=== PATIENT | female | born 1980 | race African-American/Black ===

== ENCOUNTER 2017-01-03 12:44 | Inpatient (IN) | payer MEDICAID ==
[~2017-01-03] VITALS: Ht 162.6 cm; Wt 75.2 kg
[~2017-01-03 12:44] MED LIST: PREN-129 OR
[2017-01-03 13:33] LABS: Urine Bilirubin Negative (Negative); Urine Blood 1+ /uL (Negative); Urine Color Yellow (Yellow); Urine Glucose Normal (Normal); Urine Ketone Negative (Negative); Urine Mucus FEW (None Seen); Urine Nitrite Negative (Negative); Urine RBC 8 /hpf (0 - 4); Urine Squamous Epithelial Cell FEW /hpf (<5); Urine WBC Clumps PRESENT /hpf (None Seen); Urine pH 5.5 (5.0-8.0)
[2017-01-03 13:40] LABS: Basophils # (auto) 0 uL; CONDITION Y; Calcium 8.7 mg/dL (8.5-10.1); DEFINITIVE SEE PRINTOUT; Eosinophils # (auto) 0 uL; Eosinophils % (auto) 0.1 % (0.0-7.0); Hematocrit 29.6 % (36.0-46.0); Hemoglobin 9.6 g/dL (12.2-16.2); Lymphocytes # (auto) 0.8 uL; Lymphocytes % (auto) 6.6 % (10.0-50.0); Mean Corpuscular Hgb Conc. 32.4 g/dL (32.0-36.0); Mean Corpuscular Volume 74.3 fL (80.0-100.0); Mean Platelet Volume 8.5 fL (7.4-10.4); Monocytes # (auto) 1.1 uL; Monocytes % (auto) 9.7 % (0.0-12.0); Neutrophils # (auto) 9.8 uL; Neutrophils % (auto) 83.6 % (37.0-80.0); Platelet Count (auto) 440 10^3/uL (140-450); Potassium 3.4 mmol/L (3.5-5.1); White Blood Cell 11.7 10^3/uL (4.4-10.8)
[2017-01-03 13:42] LABS: BUN/Creatinine Ratio 10.7
[2017-01-03 13:44] LABS: Red Cell Distribution Width 21.1 % (11.6-16.0)
[2017-01-03 13:45] LABS: Bilirubin, Total 0.4 mg/dL (0.2-1.0)
[2017-01-03 14:15] LABS: Anisocytosis Slight; Giant Platelets Few; Hypochromia Slight; Ovalocytes FEW; Platelet Estimate Adequate
[2017-01-03 14:16] LABS: Large Platelets FEW
[2017-01-03] MEDS ORDERED: SODIUM CHLORIDE 0.9% 1,000 ML IVB ONE (14:17)
[2017-01-03] MEDS ORDERED: ONDANSETRON HCL 4 MG/2 ML VIAL IV ONE (14:30)
[2017-01-03 14:45] LABS: Magnesium 2.4 mg/dL (1.6-2.6)
[2017-01-03 14:54] LABS: Partial Thromboplastin Time 31.4 sec (22.64-33.71); Prothrombin Time 10.9 sec (9.37-12.3)
[2017-01-03] MEDS ORDERED: cefTRIAXone 1GM/50ML D5W 50 ML IV ONE (16:30)
[2017-01-03] MEDS ORDERED: KETOROLAC TROMETH 30 MG/ML 1ML VIAL IV ONE (16:45)
[2017-01-03] MEDS ORDERED: TEMAZEPAM 15 MG CAP PO PRN (19:15)
[2017-01-03] MEDS ORDERED: DOCUSATE SOD 100 MG CAP PO PRN (19:15)
[2017-01-03] MEDS ORDERED: HYDROcodone-ACET 5/325MG TAB PO PRN (19:15)
[2017-01-03] MEDS ORDERED: VANCOMYCIN PER PHARMACY 0 MG IV SCH (19:15)
[2017-01-03] MEDS ORDERED: MORPHINE SULF INJ 2 MG/ML SYRINGE 1ML IV PRN (19:15)
[2017-01-03] MEDS ORDERED: ACETAMINOPHEN 325 MG TAB PO PRN (19:15)
[2017-01-03] MEDS ORDERED: POTASSIUM CHLORIDE 8 MEQ TAB PO ONE (19:15)
[2017-01-03] MEDS: ONDANSETRON HCL 4 MG/2 ML VIAL IV PRN (20:17)
[2017-01-03] MEDS: SODIUM CHLORIDE 0.9% 1,000 ML IV SCH (20:18)
[2017-01-03] MEDS: VANCOMYCIN 1GM/250ML D5W 250 ML IV SCH (20:19)
[2017-01-03 21:10] VITALS: BP 109/73
[2017-01-03] MEDS: FAMOTIDINE 20 MG TAB PO SCH (21:55)
[2017-01-03 22:00] VITALS: BP 109/73
[2017-01-04 05:00] VITALS: BP 115/71
[2017-01-04] MEDS: SODIUM CHLORIDE 0.9% 1,000 ML IV SCH ×2 (05:08→08:53)
[2017-01-04 06:15] LABS: Basophils # (auto) 0 uL; Basophils % (auto) 0.2 % (0.0-2.0); CONDITION Y; DEFINITIVE SEE PRINTOUT; Eosinophils # (auto) 0.1 uL; Eosinophils % (auto) 0.8 % (0.0-7.0); Hematocrit 24.2 % (36.0-46.0); Hemoglobin 7.8 g/dL (12.2-16.2); Lymphocytes # (auto) 1.5 uL; Lymphocytes % (auto) 14.8 % (10.0-50.0); Mean Corpuscular Hemoglobin 23.9 pg (28.0-32.0); Mean Corpuscular Hgb Conc. 32.3 g/dL (32.0-36.0); Mean Platelet Volume 8.5 fL (7.4-10.4); Monocytes # (auto) 1.5 uL; Monocytes % (auto) 15.6 % (0.0-12.0); Neutrophils # (auto) 6.7 uL; Neutrophils % (auto) 68.6 % (37.0-80.0); Platelet Count (auto) 357 10^3/uL (140-450); White Blood Cell 9.8 10^3/uL (4.4-10.8)
[2017-01-04 07:03] LABS: Albumin 2.4 g/dL (3.4-5.0); BUN/Creatinine Ratio 15.3; Bilirubin, Total 0.3 mg/dL (0.2-1.0); Calcium 8.1 mg/dL (8.5-10.1); Potassium 3.4 mmol/L (3.5-5.1); Total Protein 6.3 g/dL (6.4-8.2)
[2017-01-04] MEDS: BOOST PLUS 8 ounce PO SCH ×3 (08:12→18:07)
[2017-01-04 08:49] LABS: Anisocytosis Slight; Hypochromia Slight; Platelet Estimate Adequate
[2017-01-04] MEDS: VANCOMYCIN 1GM/250ML D5W 250 ML IV SCH (08:51)
[2017-01-04] MEDS: cefTRIAXone 1GM/50ML D5W 50 ML IV SCH (08:52)
[2017-01-04] MEDS: MULTIPLE VITAMIN TAB PO SCH (08:52)
[2017-01-04] MEDS: FAMOTIDINE 20 MG TAB PO SCH ×2 (08:52→21:22)
[2017-01-04 09:39] VITALS: BP 118/68
[2017-01-04] MEDS ORDERED: POTASSIUM CHL 10 Meq TABLET PO ONE ×2 (11:00→13:15)
[2017-01-04 14:16] VITALS: BP 120/70
[2017-01-04 17:20] VITALS: BP 111/69
[2017-01-04 21:30] VITALS: BP 135/82
[2017-01-05 05:00] VITALS: BP 133/78
[2017-01-05] MEDS: SODIUM CHLORIDE 0.9% 1,000 ML IV SCH ×3 (06:27→12:27)
[2017-01-05] MEDS: ONDANSETRON HCL 4 MG/2 ML VIAL IV PRN (06:38)
[2017-01-05 06:50] LABS: Basophils # (auto) 0.1 uL; Basophils % (auto) 0.6 % (0.0-2.0); CONDITION Y; DEFINITIVE SEE PRINTOUT; Eosinophils # (auto) 0.1 uL; Eosinophils % (auto) 1.3 % (0.0-7.0); Hematocrit 24.5 % (36.0-46.0); Hemoglobin 7.9 g/dL (12.2-16.2); Lymphocytes # (auto) 1.9 uL; Lymphocytes % (auto) 23.3 % (10.0-50.0); Mean Corpuscular Hemoglobin 24.1 pg (28.0-32.0); Mean Corpuscular Hgb Conc. 32.4 g/dL (32.0-36.0); Mean Corpuscular Volume 74.3 fL (80.0-100.0); Mean Platelet Volume 8.8 fL (7.4-10.4); Monocytes # (auto) 0.9 uL; Monocytes % (auto) 10.5 % (0.0-12.0); Neutrophils # (auto) 5.4 uL; Neutrophils % (auto) 64.3 % (37.0-80.0); Platelet Count (auto) 381 10^3/uL (140-450); White Blood Cell 8.4 10^3/uL (4.4-10.8)
[2017-01-05 07:09] LABS: Red Cell Distribution Width 20.9 % (11.6-16.0)
[2017-01-05 07:10] LABS: Potassium 3.6 mmol/L (3.5-5.1)
[2017-01-05 07:20] LABS: Albumin 2.3 g/dL (3.4-5.0); BUN/Creatinine Ratio 12.5; Bilirubin, Total 0.1 mg/dL (0.2-1.0)
[2017-01-05 07:55] LABS: Anisocytosis Slight; Hypochromia Slight; Platelet Estimate Adequate
[2017-01-05 07:56] LABS: Platelet Clumps FEW
[2017-01-05] MEDS: BOOST PLUS 8 ounce PO SCH ×2 (07:57→12:27)
[2017-01-05 08:00] VITALS: BP 126/84
[2017-01-05 09:00] VITALS: BP 126/84
[2017-01-05] MEDS: MULTIPLE VITAMIN TAB PO SCH (09:40)
[2017-01-05] MEDS: FAMOTIDINE 20 MG TAB PO SCH (09:40)
[2017-01-05] MEDS: cefTRIAXone 1GM/50ML D5W 50 ML IV SCH (09:40)
[2017-01-05 12:30] VITALS: BP 125/80
[2017-01-05 13:00] VITALS: BP 119/75
== END 2017-01-05 14:09 | disposition home or self-care (01) | DRG 720 ==
LOC: ER 12:44 → OVERFLOW 12:45 → WEST WING 21:16
PROVIDERS: ADMIT Internal Medicine; ATTEND Internal Medicine
DX: A41.9 Sepsis, unspecified organism (principal); E44.0 Moderate protein-calorie malnutrition; N12 Tubulo-interstitial nephritis, not specified as acute or chronic; E87.6 Hypokalemia; D50.9 Iron deficiency anemia, unspecified; Z82.49 Family history of ischemic heart disease and other diseases of the circulatory system
CPT/HCPCS: 36415; 71010; 74176; 76856; 80053; 80202; 81001; 81025; 82150; 83540; 83605; 83690; 83735; 84443; 85025; 85610; 85730; 87040; 87086; 87088; 87186; 94761; 96361; 96365; 96375; J0696; J1885; J2405

== ENCOUNTER 2017-05-21 16:39 | Emergency (ER) | payer MEDICAID ==
[~2017-05-21] VITALS: Ht 162.6 cm; Wt 81.2 kg
[2017-05-21 17:11] VITALS: BP 131/85
[2017-05-21 17:47] LABS: Urine Bacteria FEW /hpf (None Seen); Urine Blood 2+ /uL (Negative); Urine Specific Gravity 1.027 (1.001-1.035); Urine WBC 9 /hpf (0 - 5)
[2017-05-21] MEDS ORDERED: PHENAZOPYRIDINE HCL 100 MG TAB PO ONE (18:15)
== END 2017-05-21 18:30 | disposition home or self-care (01) ==
LOC: ER 16:56
DX: N39.0 Urinary tract infection, site not specified (principal)
CPT/HCPCS: 81001; 81025

== ENCOUNTER 2017-11-02 10:26 | Emergency (ER) | payer MEDICAID ==
[~2017-11-02] VITALS: Ht 154.9 cm; Wt 81.6 kg
[2017-11-02] MEDS ORDERED: SODIUM CHLORIDE 0.9% 500 ML IVB ONE (10:55)
[2017-11-02] MEDS ORDERED: KETOROLAC TROMETH 30 MG/ML 1ML VIAL IV ONE (11:00)
[2017-11-02 11:02] LABS: Basophils # (auto) 0.1 uL; Eosinophils # (auto) 0.1 uL; Lymphocytes # (auto) 2.1 uL; Monocytes # (auto) 0.6 uL
[2017-11-02 11:04] LABS: Basophils % (auto) 0.9 % (0.0-2.0); Eosinophils % (auto) 1.4 % (0.0-7.0); Hematocrit 28.4 % (36.0-46.0); Hemoglobin 8.9 g/dL (12.2-16.2); Lymphocytes % (auto) 27.7 % (10.0-50.0); Mean Corpuscular Hemoglobin 23.2 pg (28.0-32.0); Mean Corpuscular Hgb Conc. 31.2 g/dL (32.0-36.0); Mean Corpuscular Volume 74.3 fL (80.0-100.0); Monocytes % (auto) 7.4 % (0.0-12.0); Neutrophils # (auto) 4.7 uL; Neutrophils % (auto) 62.6 % (37.0-80.0); Platelet Count (auto) 388 10^3/uL (140-450); Red Blood Cells 3.82 10^6/uL (4.0-5.20); Red Cell Distribution Width 19.5 % (11.8-14.3); White Blood Cell 7.5 10^3/uL (4.4-10.8)
[2017-11-02 11:33] LABS: Albumin 3.4 g/dL (3.4-5.0); Bilirubin, Total 0.3 mg/dL (0.2-1.0); Calcium 8.6 mg/dL (8.5-10.1); Total Protein 7.3 g/dL (6.4-8.2)
[2017-11-02 13:29] LABS: Urine Bacteria MOD /hpf (None Seen); Urine Blood 2+ /uL (Negative); Urine WBC 1 /hpf (0 - 5)
[2017-11-02 15:15] VITALS: BP 124/82
== END 2017-11-02 16:15 | disposition home or self-care (01) ==
LOC: ER 10:26
DX: R10.11 Right upper quadrant pain (principal); R19.7 Diarrhea, unspecified
CPT/HCPCS: 36415; 74176; 80053; 81001; 81025; 83690; 83735; 85025; 94761; 96361; 96374; 99285; J1885; J7040

== ENCOUNTER 2018-03-11 20:22 | Emergency (ER) | payer MEDICAID ==
[~2018-03-11] VITALS: Ht 162.6 cm; Wt 83.9 kg
[2018-03-11 21:06] LABS: Urine Bacteria MANY /hpf (None Seen); Urine Blood 3+ /uL (Negative); Urine Budding Yeast FEW /hpf (None Seen); Urine Specific Gravity 1.014 (1.001-1.035); Urine WBC 6 /hpf (0 - 5)
[2018-03-11 21:17] LABS: Basophils # (auto) 0.1 uL; Eosinophils # (auto) 0.2 uL; Monocytes # (auto) 0.8 uL; Neutrophils # (auto) 5.4 uL; White Blood Cell 8.8 10^3/uL (4.4-10.8)
[2018-03-11 21:19] LABS: Basophils % (auto) 0.7 % (0.0-2.0); Eosinophils % (auto) 1.8 % (0.0-7.0); Hematocrit 28.3 % (36.0-46.0); Hemoglobin 8.8 g/dL (12.2-16.2); Lymphocytes # (auto) 2.3 uL; Lymphocytes % (auto) 26.3 % (10.0-50.0); Mean Corpuscular Hemoglobin 23.4 pg (28.0-32.0); Mean Corpuscular Hgb Conc. 31.3 g/dL (32.0-36.0); Mean Corpuscular Volume 74.8 fL (80.0-100.0); Monocytes % (auto) 9.5 % (0.0-12.0); Neutrophils % (auto) 61.7 % (37.0-80.0); Nucleated Red Blood Cells % 0.1 %; Red Blood Cells 3.78 10^6/uL (4.0-5.20); Red Cell Distribution Width 19.7 % (11.8-14.3)
[2018-03-11 21:38] LABS: Albumin 3.3 g/dL (3.4-5.0); Calcium 8.2 mg/dL (8.5-10.1); Potassium 4.1 mmol/L (3.5-5.1)
[2018-03-11 21:41] LABS: BUN/Creatinine Ratio 13.8; Bilirubin, Total 0.2 mg/dL (0.2-1.0); Total Protein 7.2 g/dL (6.4-8.2)
[2018-03-11 21:57] LABS: Platelet Count (auto) 461 10^3/uL (140-450)
[2018-03-11 23:33] VITALS: BP 133/87
[2018-03-12] MEDS ORDERED: HYDROcodone-ACET 5/325MG TAB PO ONE (00:30)
== END 2018-03-12 03:08 | disposition home or self-care (01) ==
LOC: ER 20:25
DX: N93.8 Other specified abnormal uterine and vaginal bleeding (principal); D25.9 Leiomyoma of uterus, unspecified; N83.201 Unspecified ovarian cyst, right side
CPT/HCPCS: 36415; 76856; 80053; 81001; 84702; 85025

== ENCOUNTER 2018-12-11 14:28 | Emergency (ER) | payer SELFPAY ==
[~2018-12-11] VITALS: Ht 175.3 cm; Wt 90.7 kg
[2018-12-11] MEDS ORDERED: SODIUM CHLORIDE 0.9% 1,000 ML IVB ONE (15:25)
[2018-12-11 15:38] LABS: Basophils # (auto) 0.1 uL; Eosinophils # (auto) 0.1 uL; Eosinophils % (auto) 0.8 % (0.0-7.0); Monocytes # (auto) 0.4 uL; Neutrophils # (auto) 5.4 uL; Neutrophils % (auto) 74.4 % (37.0-80.0)
[2018-12-11 15:39] LABS: Basophils % (auto) 0.8 % (0.0-2.0); Hematocrit 29.9 % (36.0-46.0); Hemoglobin 9.6 g/dL (12.2-16.2); Lymphocytes # (auto) 1.4 uL; Lymphocytes % (auto) 19.1 % (10.0-50.0); Mean Corpuscular Hemoglobin 25.9 pg (28.0-32.0); Mean Corpuscular Hgb Conc. 32.2 g/dL (32.0-36.0); Mean Corpuscular Volume 80.5 fL (80.0-100.0); Monocytes % (auto) 4.9 % (0.0-12.0); Platelet Count (auto) 399 10^3/uL (140-450); Red Blood Cells 3.71 10^6/uL (4.0-5.20); Red Cell Distribution Width 18.5 % (11.8-14.3); White Blood Cell 7.2 10^3/uL (4.4-10.8)
[2018-12-11 16:02] LABS: Alanine Aminotransferase 21 U/L (13-56); Albumin 3.4 g/dL (3.4-5.0); Anion Gap 11 (5-15); Aspartate Aminotransferase 17 U/L (15-37); Blood Urea Nitrogen 9 mg/dL (7-18); Calcium 8.3 mg/dL (8.5-10.1); Carbon Dioxide 23 mmol/L (21-32); Chloride 110 mmol/L (98-107); Glucose 89 mg/dL (74-106); Potassium 3.5 mmol/L (3.5-5.1); Sodium 144 mmol/L (136-145)
[2018-12-11 16:06] LABS: Alkaline Phosphatase 59 U/L (45-117); Bilirubin, Total 0.5 mg/dL (0.2-1.0); GFR African American 89 mL/min; GFR Non-African American 74 mL/min; Total Protein 7.3 g/dL (6.4-8.2)
[2018-12-11 16:12] LABS: Blood Alcohol < 3.0 mg/dL (0-5); Magnesium 1.9 mg/dL (1.6-2.6)
[2018-12-11 16:21] LABS: INR 0.99 (0.9-1.15); Partial Thromboplastin Time 27.3 sec (23.64-32.05)
[2018-12-11 18:24] VITALS: BP 126/51
[2018-12-11] MEDS ORDERED: ACETAMINOPHEN 325 MG TAB PO ONE (19:30)
[2018-12-11 20:09] LABS: Urine Bacteria FEW /hpf (None Seen); Urine Blood Negative /uL (Negative); Urine Hyaline Cast FEW /lpf (0 - 2); Urine Mucus FEW (None Seen); Urine WBC 10 /hpf (0 - 5)
[2018-12-11 20:25] LABS: Alcohol, Urine < 3.0 mg/dL (0-5); Amphetamine Screen, Urine NEGATIVE (NEGATIVE); Barbiturate Scree,Urine NEGATIVE (NEGATIVE); Benzodiazephine Screen, Urine NEGATIVE (NEGATIVE); Cannabinoid Screen, Urine NEGATIVE (NEGATIVE); Cocaine Screen, Urine NEGATIVE (NEGATIVE); Opiate Scree,Urine NEGATIVE (NEGATIVE); Phencyclidine Screen, Urine NEGATIVE (NEGATIVE)
[2018-12-11] MEDS ORDERED: SULFAMETHOX W/TRIMETH(800/160MG) DS TAB PO ONE (21:45)
== END 2018-12-11 22:02 | disposition home or self-care (01) ==
LOC: EDBD 14:28 → ER 14:28
DX: D50.9 Iron deficiency anemia, unspecified (principal); N39.0 Urinary tract infection, site not specified; I10 Essential (primary) hypertension
CPT/HCPCS: 36415; 70450; 71045; 80053; 80307; 80320; 81001; 81025; 82962; 83735; 84484; 85025; 85610; 85730; 93005; 94761; 96360

== ENCOUNTER 2019-07-06 11:34 | Emergency (ER) | payer MEDICAID, OTHER ==
[~2019-07-06] VITALS: Ht 162.6 cm; Wt 81.6 kg
[2019-07-06 12:39] LABS: Urine Bacteria FEW /hpf (None Seen); Urine Blood Negative /uL (Negative); Urine Mucus FEW (None Seen); Urine Specific Gravity 1.023 (1.001-1.035); Urine WBC 3 /hpf (0 - 5)
[2019-07-06 15:51] VITALS: BP 112/73
== END 2019-07-06 15:57 | disposition home or self-care (01) ==
LOC: ER 11:34
DX: N39.0 Urinary tract infection, site not specified (principal); I10 Essential (primary) hypertension
CPT/HCPCS: 81001